=== PATIENT | female | born 1980 | race Hispanic/Latino ===

== ENCOUNTER 2021-06-06 06:36 | Day surgery (SDC) | payer OTHER ==
--- NOTE | 2021-06-05 12:37 | RAD REPORT ---
EXAM DESCRIPTION: RAD - Chest Pa And Lat (2 Views) - 06/05/2021 12:24 pm CLINICAL HISTORY: PRE-OP COMPARISON: No comparisons FINDINGS: Lines: None. Lungs: No evidence of edema or pneumonia. Pleural: No significant pleural effusions or pneumothorax. Cardiac: The heart size is within normal limits. Bones: No acute fractures. Other: IMPRESSION: No acute cardiopulmonary disease.
[2021-06-05 12:52] LABS: Absolute Lymphocytes (CBC) 3.1 K/uL (0.7-4.9); Basophils % 0.4 % (0-1.3); Hematocrit 37.5 % (36.0-45.0); Lymphocytes % 33.4 % (15.3-44.8); MPV 8.8 fL (7.6-11.3); RBC Red Blood Cell Count 4.68 M/uL (3.86-4.86)
[2021-06-05 13:06] LABS: BUN Blood Urea Nitrogen 8 mg/dL (7-18); Bicarbonate 26 mmol/L (21-32); Glucose Level 101 mg/dL (74-106); Potassium 3.6 mmol/L (3.5-5.1); Sodium Level 139 mmol/L (136-145)
[2021-06-06] MEDS ORDERED: Ringers Lactate 1,000 ML IV ONE (06:55)
[2021-06-06] MEDS ORDERED: propofoL 200 MG/20 ML VIAL IV ONE ×4 (07:03→07:36)
[2021-06-06] MEDS ORDERED: LIDOCAINE 1% MPF 2 ML AMPULE ONE (07:03)
[2021-06-06] MEDS ORDERED: MIDAZOLAM HCL 2 MG/2 ML INJ ONE (07:38)
--- NOTE | 2021-06-06 07:56 | ENDO RPT ---
[address], [id number] COLONOSCOPY PROCEDURE REPORT EXAM DATE: 06/06/2021 PATIENT NAME: Lidya Lowry MR #: [id number] BIRTHDATE: 1980 ATTENDING: Alon Christianson M.D. STATUS: outpatient PERSONAL ASSISTANT: Rosalind Velez RN INDICATIONS: The patient is a 40 yr old Female here for a colonoscopy due to family history of colon cancer PROCEDURE PERFORMED: Colonoscopy with hot biopsy polypectomy MEDICATIONS: Per Anesthesia. ESTIMATED BLOOD LOSS: None CONSENT: The patient understands the risks and benefits of the procedure and understands that these risks include, but are not limited to: sedation, allergic reaction, infection, perforation and/or bleeding. Alternative means of evaluation and treatment include, among others: physical exam, x-rays, and/or surgical intervention. The patient elects to proceed with this endoscopic procedure. DESCRIPTION OF PROCEDURE: During intra-op preparation period all mechanical medical equipment was checked for proper function. Hand hygiene and appropriate measures for infection prevention was taken. Procedure, possible complications, alternatives including, but not limited to possibility of bleeding, perforation, tear, infection, sepsis, need for surgery, need for blood transfusion, were explained to the patient. After the risks, benefits and alternatives of the procedure were thoroughly explained, Informed consent was verified, confirmed and timeout was successfully executed by the treatment team. The patient was placed in the left lateral position. A digital rectal exam was performed and revealed no abnormalities of the rectum. After appropriate level of anesthesia, the scope was passed. The EC-[id number] ([id number]) endoscope was introduced through the anus and advanced to the cecum, which was identified by the ileocecal valve. The quality of the prep was good. The instrument was then slowly withdrawn as the colon was fully examined. Scope withdrawal time was 20 minutes. COLON FINDINGS: Mild diverticulosis was noted in the sigmoid colon. A small semi-pedunculated polyp was found in the transverse colon. Retroflexed views revealed no abnormalities. The scope was then completely withdrawn from the patient and the procedure terminated. ADVERSE EVENTS: There were no complications. IMPRESSIONS: 1. Mild diverticulosis was noted in the sigmoid colon 2. Small semi-pedunculated polyp was found in the transverse colon RECOMMENDATIONS: 1. follow-up: office 1 week(s) 2. fiber rich diet 3. Metamucil RECALL: Return in 2 year(s) for Colonoscopy. Alon Christianson M.D. eSigned: Alon Christianson M.D. 06/06/2021 7:55 AM cc: Oniel Richard MD CPT CODES: ICD9 CODES: PATIENT NAME: Alen Lidya Tobias MR#: [id number]
[2021-06-06 08:59] VITALS: BP 132/84; TEMP 98; O2SAT 100
== END 2021-06-06 08:40 | disposition home or self-care (01) ==
LOC: OR 06:36 → EDBD 07:30 → OR 08:40
PROVIDERS: ATTEND Surgery
PROC: 0DBL8ZX Excision of Transverse Colon, Via Natural or Artificial Opening Endoscopic, Diagnostic (ICD-10-PCS; principal; 2021-06-06 07:30)
DX: Z80.0 Family history of malignant neoplasm of digestive organs (principal); K57.30 Diverticulosis of large intestine without perforation or abscess without bleeding; D12.3 Benign neoplasm of transverse colon; Z20.822 Contact with and (suspected) exposure to COVID-19
CPT/HCPCS: 93005 ×2; 85025; 80048; 36415; 81025; 88305; 71046; 45380; U0003; J2704 ×4; J2250; J7120